=== PATIENT | male | born 1955 ===

== ENCOUNTER 2016-10-14 08:10 | Day surgery (SDC) | payer BC ==
[2016-10-14 08:51] VITALS: BMI 31.9
[2016-10-14] MEDS ORDERED: Propofol 10 mg/ml Inj (20 ML) ONE ×2 (09:49→10:24)
[2016-10-14 11:07] VITALS: TEMP 97.3
[2016-10-14 11:19] VITALS: O2SAT 100
[2016-10-14 11:42] VITALS: BP 98/54; PULSE 60; RESP 14
== END 2016-10-14 12:07 | disposition home or self-care (01) ==
LOC: C.ENDO 08:10
PROVIDERS: ATTEND Internal Medicine Gastroenterology
DX: D12.2 Benign neoplasm of ascending colon (principal); Z86.010 Personal history of colon polyps; D12.4 Benign neoplasm of descending colon; D12.3 Benign neoplasm of transverse colon; Z98.84 Bariatric surgery status; K21.9 Gastro-esophageal reflux disease without esophagitis; K44.9 Diaphragmatic hernia without obstruction or gangrene; K64.8 Other hemorrhoids; Z82.49 Family history of ischemic heart disease and other diseases of the circulatory system; I10 Essential (primary) hypertension; E78.5 Hyperlipidemia, unspecified; Z80.9 Family history of malignant neoplasm, unspecified; D12.0 Benign neoplasm of cecum
CPT/HCPCS: 45380; 88305; J2001; J2704

== ENCOUNTER 2016-11-02 06:43 | Day surgery (SDC) | payer SELFPAY ==
[2016-10-26 08:31] VITALS: BMI 32.6
[2016-11-02] MEDS ORDERED: Lidocaine 1% Inj (20ml) ONE (07:25)
[2016-11-02] MEDS ORDERED: ceFAZolin IV 2 gm in Dextrose 1 GM/50 ML BAG IVPB ONE (07:25)
[2016-11-02] MEDS ORDERED: Bupivacaine/Epi 0.25%-1:200,000 10 ml PF inj IJ ONE (07:25)
[2016-11-02] MEDS ORDERED: Midazolam 2 MG/2 ML VIAL ONE (07:34)
[2016-11-02] MEDS ORDERED: Propofol 10 mg/ml Inj (20 ML) ONE (07:34)
[2016-11-02] MEDS ORDERED: Rocuronium 10 mg/ml (5 ml) ONE (07:37)
[2016-11-02] MEDS ORDERED: Phenylephrine 10 mg/ml Inj ONE (07:37)
[2016-11-02] MEDS ORDERED: Lidocaine 4% (Laryng-O-Jet) Kit MM ONE (07:45)
[2016-11-02] MEDS ORDERED: Lactated Ringer's 1,000 ML IV ONE ×4 (08:10→11:35)
[2016-11-02] MEDS ORDERED: Morphine 4 MG/ML VIAL ONE (10:00)
[2016-11-02] MEDS ORDERED: HYDROmorphone 0.5 mg/0.5 ml ISec IVP PRN (10:01)
--- NOTE | 2016-11-02 10:57 | PCM.SURG1 ---
Surgeon's Initial Post Op Note - Surgeon's Notes Surgeon: Dr. Daigle Certified Marine Mechanic: Dr. Freedman PGY-2, Janice FRY Type of Anesthesia: General Endo, Local Pre-Operative Diagnosis: Left inguinal hernia, incisional hernia Operative Findings: Left direct inguinal hernia, incisional hernia Post-Operative Diagnosis: Left inguinal hernia, incisional hernia Operation Performed: 1) Robotic Left inguinal hernia repair with mesh, 2) Robotic incisional hernia repair with mesh Specimen/Specimens Removed: lipoma of cord Estimated Blood Loss: EBL {In ML}: 10 Blood Products Given: N/A Drains Used: No Drains Post-Op Condition: Good Date of Surgery/Procedure: 11/02/16 Time of Surgery/Procedure: 10:56
[2016-11-02] MEDS ORDERED: HYDROmorphone 1 mg/ml ISec ONE ×2 (11:04→12:20)
[2016-11-02 13:32] VITALS: TEMP 97.2; O2SAT 95
[2016-11-02 13:58] VITALS: BP 148/80; PULSE 81; RESP 19
--- NOTE | 2016-11-05 08:22 | OP ---
PROCEDURE DATE: 11/02/2016 PREOPERATIVE DIAGNOSES: 1. Incisional ventral hernia. 2. Left inguinal hernia. 3. Possible postoperative adhesion. POSTOPERATIVE DIAGNOSES: 1. Incisional ventral hernia. 2. Left inguinal hernia. 3. Possible postoperative adhesion. 4. Lipoma of the left spermatic cord. PROCEDURE DONE: 1. Robotic incisional hernia repair with mesh. 2. Robotic left inguinal hernia repair with mesh. 3. Robotic lysis of adhesion. 4. Robotic excision of lipoma of the left spermatic cord. SURGEON: Manuel Daigle MD. MIXING TECHNICIAN: Janice Villegas. Janice was present for the entire extent of the procedure, helped in the prepping and draping and placement of the port, docking and undocking the robot and closure of the wound. ANESTHESIA: General endotracheal tube anesthesia. ESTIMATED BLOOD LOSS: Around 10 mL. DRAINS: None. PATHOLOGY: 1. Left inguinal hernial sac and the lipoma of the cord. 2. Incisional hernial sac and content was sent for the pathology. INTRAOPERATIVE FINDINGS: The patient had a left inguinal hernia with lipoma of the cord and the patient also had incisional hernia in the upper abdomen at the site of the previous port placement with herniation of the preperitoneal fat and the peritoneum. INTRAOPERATIVE STEPS: This 61-year-old male who was diagnosed with incisional ventral hernia at the site of the port of previous gastric bypass and the patient also had a left inguinal hernia on the CT scan and patient was consented for the robotic left inguinal hernia repair with mesh as well as incisional hernia repair with the mesh; brought to the OR, placed supine on the operating table. After induction of the anesthesia, abdomen was prepped and draped in a usual sterile fashion and a 5 mm incision was made in the left upper quadrant. Visiport technique was used. Pneumo was created. Another two 8 mm ports were placed in midline as well as the right upper quadrant and the robot was brought in. Camera, arm 1 and arm 2 were docked and first, the left inguinal region operation was done. The peritoneum was dissected up to space of Retzius in the midline laterally to lateral abdominal wall and hernial sac was reduced back into the peritoneal cavity and lipoma of the cord was also dissected. It was sent to the table for the pathology. After proper dissection of the peritoneal reflection inferiorly and superiorly, dissection of the inferior epigastric artery, the mesh was implanted. After proper implantation of the mesh, the peritoneum was sutured with 2-0 Vicryl and after that, another 8 mm port was placed in the left flank and the robot was redocked on the left side. The incisional hernia dissection was done and the incisional hernia was reduced back and the sac was sent to the table for the pathology. The defect was closed with #1 Prolene V-Loc suture and 9 cm mesh was implanted. After proper implantation of the mesh, all the ports were taken out under vision. Pneumo was deflated and all the port sites were closed in 1 layer with 4-0 Monocryl. Dry sterile dressing was applied. The patient tolerated the procedure well. Count of instruments and gauze was correct. There was no apparent complication. The patient was extubated in the OR, sent to the postanesthesia care unit in stable condition. Manuel Daigle MD cc: [id number] TT: 11/05/2016 08:21:52 steve RUIZ
== END 2016-11-02 14:30 | disposition home or self-care (01) ==
LOC: C.SDS 06:43
PROVIDERS: ATTEND Surgery Surgical Critical Care
DX: K40.90 Unilateral inguinal hernia, without obstruction or gangrene, not specified as recurrent (principal); K43.2 Incisional hernia without obstruction or gangrene
CPT/HCPCS: 49650; 49656; 82948; 88302; 88304; C1781; J0690; J1885; J2001; J2250; J2270; J2370; J2405; J2704; J3010; J7120